=== PATIENT | female | born 1980 | race Caucasian/White ===

== ENCOUNTER 2018-01-31 17:01 | Emergency (ER) | payer SELFPAY | END 2018-01-31 17:13 | disposition left against medical advice (07) | LOC: E/R 17:13 | DX: Z53.21 Procedure and treatment not carried out due to patient leaving prior to being seen by health care provider (principal) ==

== ENCOUNTER 2018-02-01 01:38 | Emergency (ER) | payer SELFPAY ==
[2018-02-01] MEDS: HYDROCODONE/APAP (5/325) TAB PO (03:46)
[2018-02-01 04:08] LABS: URINE BLOOD (Dip) POC Negative (NEGATIVE); URINE GLUCOSE (Dip) POC Negative (NEGATIVE); URINE KETONES (Dip) POC Negative (NEGATIVE); URINE LEUKOCYTE EST (Dip) POC Negative (NEGATIVE); URINE NITRITE (Dip) POC Negative (NEGATIVE); URINE TOTAL PROTEIN POC Trace (NEGATIVE)
== END 2018-02-01 04:56 | disposition home or self-care (01) ==
LOC: FTE 01:38
DX: M54.6 Pain in thoracic spine (principal)
CPT/HCPCS: 71045; 81003; 81025; 99283-25